=== PATIENT | male | born 1955 | race Caucasian/White ===

== ENCOUNTER → 2018-10-16 11:22 | Outpatient (CLI) | payer OTHER, SELFPAY ==
--- NOTE | 2018-10-16 | DI.RAD.S_ITS ---
PROCEDURE: XR LUMBAR SPINE 2-3V INDICATIONS: MUSCLE STRAIN TECHNIQUE: 3 views of the lumbar spine were acquired. COMPARISON: None. FINDINGS: Bones: No fracture or focal osseous destruction. Dextroscoliosis of the lumbar spine. Endplate sclerosis and spurring. Diffuse facet arthropathy. Mild -to-moderate diffuse lumbar disc space narrowing although limited evaluation given scoliosis. Soft tissues: Overlying bowel gas pattern is normal. No suspicious soft tissue calcifications. Numerous vascular calcifications project of the aorta. IMPRESSION: No definite fracture identified. However, suboptimal study sensitivity due to diffuse degenerative changes and scoliosis. Dictated by: Cody Barker M.D. on 10/16/2018 at 12:47 Approved by: Cody Barker M.D. on 10/16/2018 at 12:53
== END ==
PROVIDERS: PCP Family Medicine; Visit Provider Family Medicine
DX: S39.012A Strain of muscle, fascia and tendon of lower back, initial encounter (principal); M47.816 Spondylosis without myelopathy or radiculopathy, lumbar region; M41.86 Other forms of scoliosis, lumbar region
CPT/HCPCS: 72100

== ENCOUNTER → 2018-12-17 13:55 | Outpatient (CLI) | payer OTHER, SELFPAY | PROVIDERS: PCP Family Medicine; Visit Provider Family Medicine | DX: I87.321 Chronic venous hypertension (idiopathic) with inflammation of right lower extremity (principal); L97.811 Non-pressure chronic ulcer of other part of right lower leg limited to breakdown of skin; L03.115 Cellulitis of right lower limb; E66.01 Morbid (severe) obesity due to excess calories | CPT/HCPCS: 87070; 87075; 87077; 87186; 87205; 97597; 97598; 99203; 99213 ==

== ENCOUNTER → 2018-12-19 13:17 | Outpatient (CLI) | payer OTHER, SELFPAY | PROVIDERS: PCP Family Medicine; Visit Provider Family Medicine | DX: L97.811 Non-pressure chronic ulcer of other part of right lower leg limited to breakdown of skin (principal); L03.115 Cellulitis of right lower limb | CPT/HCPCS: 29581; 93922 ==

== ENCOUNTER → 2018-12-21 15:32 | Outpatient (REF) | payer OTHER, SELFPAY | LOC: LAB 15:32 | PROVIDERS: PCP Family Medicine; Visit Provider Family Medicine | DX: I87.321 Chronic venous hypertension (idiopathic) with inflammation of right lower extremity (principal); L97.811 Non-pressure chronic ulcer of other part of right lower leg limited to breakdown of skin; L03.115 Cellulitis of right lower limb; E66.01 Morbid (severe) obesity due to excess calories | CPT/HCPCS: 87186 ==

== ENCOUNTER → 2018-12-24 10:08 | Outpatient (CLI) | payer OTHER, SELFPAY | PROVIDERS: PCP Family Medicine; Visit Provider Family Medicine | DX: I87.321 Chronic venous hypertension (idiopathic) with inflammation of right lower extremity (principal); L97.812 Non-pressure chronic ulcer of other part of right lower leg with fat layer exposed; L03.115 Cellulitis of right lower limb; B96.5 Pseudomonas (aeruginosa) (mallei) (pseudomallei) as the cause of diseases classified elsewhere | CPT/HCPCS: 87070; 87205; 97597; 97598; 99214 ==

== ENCOUNTER → 2019-01-01 10:51 | Outpatient (CLI) | payer OTHER, SELFPAY | PROVIDERS: PCP Family Medicine; Visit Provider Family Medicine | DX: I87.311 Chronic venous hypertension (idiopathic) with ulcer of right lower extremity (principal); L97.812 Non-pressure chronic ulcer of other part of right lower leg with fat layer exposed; L03.115 Cellulitis of right lower limb | CPT/HCPCS: 97597; 97598 ==

== ENCOUNTER → 2019-01-08 10:15 | Outpatient (CLI) | payer OTHER, SELFPAY | PROVIDERS: PCP Family Medicine; Visit Provider Family Medicine | DX: S81.801A Unspecified open wound, right lower leg, initial encounter (principal); I87.321 Chronic venous hypertension (idiopathic) with inflammation of right lower extremity; E66.01 Morbid (severe) obesity due to excess calories | CPT/HCPCS: 99213 ==

== ENCOUNTER → 2019-01-22 10:10 | Outpatient (CLI) | payer OTHER, SELFPAY | PROVIDERS: PCP Family Medicine; Visit Provider Family Medicine | DX: L03.115 Cellulitis of right lower limb (principal); E66.01 Morbid (severe) obesity due to excess calories | CPT/HCPCS: 99213 ==

== ENCOUNTER → 2019-01-29 12:58 | Outpatient (CLI) | payer OTHER, SELFPAY | PROVIDERS: PCP Family Medicine; Visit Provider Family Medicine | DX: L97.811 Non-pressure chronic ulcer of other part of right lower leg limited to breakdown of skin (principal) | CPT/HCPCS: 99213 ==

== ENCOUNTER → 2019-02-05 10:25 | Outpatient (CLI) | payer OTHER, SELFPAY | PROVIDERS: PCP Family Medicine; Visit Provider Family Medicine | DX: R60.9 Edema, unspecified (principal); E66.01 Morbid (severe) obesity due to excess calories | CPT/HCPCS: 99212; 99213 ==

== ENCOUNTER → 2019-03-12 13:15 | Outpatient (CLI) | payer OTHER, SELFPAY ==
--- NOTE | 2019-03-12 | DI.RAD.S_ITS ---
PROCEDURE: XR HIP W PEL IF DONE BILAT 2V INDICATIONS: BILAT HIP INJURY TECHNIQUE: AP pelvis with lateral view(s) of the left and right hip(s). COMPARISON: None. FINDINGS: Bones: No fractures or dislocations. Pelvic ring appears intact. No suspicious bony lesions. Moderate bilateral hip degeneration. Lower lumbar spondylosis, with lateral curvature Soft tissues: The visualized bowel gas pattern is normal. No suspicious soft tissue calcifications. IMPRESSION: Moderate bilateral hip degeneration. If the patient's pain or other symptoms persist, consider further evaluation with MRI Dictated by: Cody Barker M.D. on 03/12/2019 at 14:02 Approved by: Cody Barker M.D. on 03/12/2019 at 14:36
== END ==
PROVIDERS: PCP Family Medicine; Visit Provider Family Medicine
DX: S79.912A Unspecified injury of left hip, initial encounter (principal); S79.911A Unspecified injury of right hip, initial encounter; M16.0 Bilateral primary osteoarthritis of hip; M47.816 Spondylosis without myelopathy or radiculopathy, lumbar region; X58.XXXA Exposure to other specified factors, initial encounter
CPT/HCPCS: 73521

== ENCOUNTER 2020-07-22 02:50 | Observation (INO) | payer OTHER, SELFPAY ==
[2020-07-22] VITALS (25 sets, daily range): BP systolic 91–139; BP diastolic 53–73; PULSE 91–137; RESP 18–36; TEMP 36.2–37.8; O2SAT 97–100; BMI 33.5
--- NOTE | 2020-07-22 03:00 | DI.US.S_ITS ---
PROCEDURE: US PERIPH VENOUS LOW EXTREM BI INDICATIONS: Pain and edema, both legs TECHNIQUE: Real-time imaging, as well as color and pulse Doppler interrogation, were performed of the deep veins of both legs from the inguinal ligament to the popliteal fossa. COMPARISON: None. FINDINGS: Right: The common femoral, femoral and popliteal veins are normally compressible, and free of intraluminal thrombus. Color and pulse Doppler demonstrate normal phasic intravascular flow. There is normal augmentation response to distal compression maneuver. Left: The common femoral, femoral and popliteal veins are normally compressible, and free of intraluminal thrombus. Color and pulse Doppler demonstrate normal phasic intravascular flow. There is normal augmentation response to distal compression maneuver. IMPRESSION: No evidence of deep vein thrombosis involving either the right or left lower extremities. Dictated by: Selin Arriaga MD, PhD on 07/22/2020 at 8:04 Approved by: Selin Arriaga MD, PhD on 07/22/2020 at 8:19
--- NOTE | 2020-07-22 03:04 | ED_ITS ---
HPI - Fall General Chief Complaint: Fall Stated Complaint: Fall Time Seen by Provider: 07/22/20 03:00 Source: patient and EMS Mode of arrival: EMS Limitations: no limitations History of Present Illness HPI Narrative: The patient was transitioned to a chair earlier this evening, he fell to the floor. He landed on his knees. He fell 2 years ago while at work, injuring his lower back. From that injury he has had persistent numbness to his lower extremities. He has been ambulatory without motor weakness to the lower extremities. He was trapped in knee-chest position position for about 3 hours. He eventually contact is neighbor, his neighbor could not help him and contacted EMS. He has bandages on both lower extremities, he is tending to chronic skin lesions that were [facility]. He has dyspnea on panting upon arrival. He does not complain of chest pain. He denies h emoptysis. He denies recent illness. He denies fever or chills. He has abrasions to both knees and lower extremities. He is ulcers/skin lesions wraps to both lower extremities. He currently complains of numbness in both feet, as noted above. Since been trapped in the position as described, he cannot move his ankles or feet. He does not have diabetes. He refers to the axilla as the reason for his neuropathy. His approximately 2 years ago, he lives alone. Related Data Home Medications Medication Instructions Recorded Confirmed hydrochlorothiazide 25 mg tablet 25 mg PO DAILY 06/02/18 06/02/18 lisinopril 40 mg tablet 40 mg PO DAILY 06/02/18 06/02/18 niacin 500 mg tablet 500 mg PO DAILY 06/02/18 06/02/18 omega-3 fatty acids 500 mg capsule 500 mg PO DAILY 06/02/18 06/02/18 simvastatin PO 06/02/18 06/02/18 Review of Systems Constitutional Constitutional: Denies body ache(s), Denies chills, Denies fever(s), Denies headache(s) and Denies night sweats Eyes Eyes: Denies change in vision and Denies loss of vision ENT Ears, Nose, Mouth, and Throat: Denies vertigo, Denies dizziness, Denies headache(s) and Denies sore throat Cardiovascular Cardiovascular: Denies chest pain, Denies irregular heart rhythm, Denies lightheadedness, Denies dyspnea and Denies orthopnea Respiratory Respiratory: Denies cough, Denies dyspnea and Denies wheezing Gastrointestinal Gastrointestinal: Denies abdominal pain, Denies diarrhea, Denies nausea and De nies vomiting Genitourinary Genitourinary: Denies dysuria Genitourinary: Denies dysuria Musculoskeletal Comments: See HPI regarding lower extremities. Integumentary/Breasts Comments: Open sores on both lower extremities. Multiple bruises in from the fall. Neurologic Neurologic: Denies vertigo, Denies dizziness, Denies headache(s) and Denies loss of vision Comments: Bilateral lower extremity numbness. Allergic/Immunologic Allergic/Immunologic: Denies wheezing Patient History Medical History (Updated 07/22/20 @ 05:58 by Wilmar Guzman MD) Hypertension (Acute) Surgical History (Updated 07/22/20 @ 05:38 by Wilmar Guzman MD) No significant past surgical history (Acute) Social History Smoking Status: Former smoker Smoking Status: Former smoker Exam Initial Vital Signs Initial Vital Signs: Vital Signs Temperature 100.1 F H 07/22/20 03:00 Pulse Rate 136 H 07/22/20 03:00 Respiratory Rate 36 H 07/22/20 03:00 Blood Pressure 91/58 L 07/22/20 03:00 Pulse Oximetry 100 07/22/20 03:00 Const General: cooperative and well developed Nutritional Appearance: well nourished [facility] Head: normocephalic and atraumatic Eyes General: appearance normal, both eyes and all related structures Eyelids: eyelids normal Conjunctivae: conjunctivae normal Sclera: sclerae normal Pupils: PERRL EOM: EOM intact bilaterally Neck Neck: No lymphadenopathy Chest Chest: normal inspection of the chest Resp Effort & Inspection: normal respiratory effort, able to speak in complete sentences, no respiratory distress and no use of accessory muscles Auscultation: clear to auscultation bilaterally Cardio Rate: regular rate and tachycardic Rhythm: regular rhythm Heart Sounds: no click, no gallops, no murmurs and no rubs Pulses: normal peripheral pulses GI Inspection: non-distended Palpation: soft, no hepatosplenomegaly, No guarding, No pulsatile mass and No tender Auscultation: normal bowel sounds Back/Spine/Pelvis Back: normal to inspection and No back tenderness (No visible injury) Skin General: no rashes or lesions noted, No jaundice and No petechiae Other: Erythema with warmth to both lower extremities. Skin breakdown low-dose notable on the right. Slimy, purulent drainage from the right leg. No evidence of abscess. Contusions and abrasions of the knees, shins, and dorsal feet. Normal capillary refill to both lower extremities. Neuro Other: He can flex and extend at the hips, decreased flexion is tension at the knees. No flexion extension at the ankles. He has a traumatic neuropathy. Course Course Course Narrative: The patient had tachypnea and tachycardia upon arrival. Is initial blood pressure was 90s. He was afebrile. Exam was concerning for sepsis, he was quickly started on IV fluid boluses, as well as Zosyn. I wound culture was obtained from the right leg. Chest x-ray shows no infiltrate. EKG shows tachycardia, no acute ST elevation. There are multiple abnormalities on the labs, he has renal failure, diabetes, acidosis, and hyperkalemia. His LFTs are elevated. The troponin and CK are elevated. He has significant elevated D- dimer. Ultrasound of lower extremities was normal, no DVT. A CTA of the chest was not obtainable due to his poor renal function. Lovenox was given due to the elevated D-dimer in conjunction with tachypnea as well as the elevated troponin. His received 3 L of IV fluids to date. Zosyn has been given. He received morphine due to lower extremity pain. The tachycardia is improved, his blood pressure is now 108 systolic. He clearly feels better. Despite aggressive IV hydration, I urine sample has not been obtained. He appears to have rh abdomyolysis. I have discussed the patient's care with the on-call physician, Dr. Headley. IV fluids will be continued. His labs will be repeated. He will be admitted to the ICU. Orders Ordered: ED Orders 07/22/20 03:00 US periph venous low extrem bi Stat 07/22/20 03:03 EKG-12 Lead Stat 07/22/20 03:10 COVID19 -ED/INPAT/OR/L&D Stat 07/22/20 03:14 XR chest 1V Stat 07/22/20 03:15 Wound Culture and Gram Stain Stat 07/22/20 03:20 Blood Culture Stat Complete Blood Count AUTO DIFF Stat Comprehensive Metabolic Panel Stat D Dimer Stat Lactate (Lactic Acid) Stat NT-proBNP (BNP-Adult 18+) Stat Troponin & CK Cardiac Panel Stat 07/22/20 05:18 Arterial Blood Gas Stat Sodium Chloride (Normal Saline 0.9%) 1,000 mls @ 250 mls/hr IV CONT CHECO Last Infusion: 07/22/20 06:23 Dose: 0 mls/hr Documented by: Infusion: 07/22/20 05:42 Dose: 0 mls/hr Documented by: Admin: 07/22/20 03:51 Dose: 250 mls/hr Documented by: ZORAN Sodium Chloride (Normal Saline 0.9%) 1,000 mls @ 1,000 mls/hr IV BOLUS PRN PRN Reason: Fluid replacement Last Admin: 07/22/20 06:50 Dose: 1,000 mls/hr Documented by: ZORAN Discontinued Medications Enoxaparin Sodium (Lovenox) 130 mg 1 mg/kg (130 mg) SUBCUT NOW ONE Stop: 07/22/20 05:03 Last Admin: 07/22/20 05:11 Dose: 130 mg Documented by: ASHIA Piperacillin/Tazobactam/Dextrose (Zosyn) 4.5 gm in 100 mls @ 200 mls/hr IV NOW ONE Stop: 07/22/20 03:43 Last Infusion: 07/22/20 04:34 Dose: 0 mls/hr Documented by: Admin: 07/22/20 03:52 Dose: 200 mls/hr Documented by: ZORAN Sodium Chloride (Normal Saline 0.9%) 1,000 mls @ 1,000 mls/hr IV BOLUS ONE Stop: 07/22/20 06:04 Last Infusion: 07/22/20 06:24 Dose: 0 mls/hr Documented by: Admin: 07/22/20 05:11 Dose: 1,000 mls/hr Documented by: ASHIA Morphine Sulfate (Morphine) 4 mg IV NOW ONE Stop: 07/22/20 03:01 Last Admin: 07/22/20 04:06 Dose: 4 mg Documented by: ZORAN Morphine Sulfate (Morphine) 4 mg IV NOW ONE Stop: 07/22/20 05:07 Last Admin: 07/22/20 05:11 Dose: 4 mg Documented by: AUPDIKE Vital Signs Vital signs: Vital Signs - 8 hr 07/22/20 03:00 07/22/20 03:02 07/22/20 03:03 Temperature 100.1 F H Pulse Rate 136 H 137 H 137 H Respiratory Rate 36 H Blood Pressure 91/58 L 91/58 L Pulse Oximetry 100 100 100 07/22/20 03:30 07/22/20 03:33 07/22/20 03:50 Temperature Pulse Rate 134 H 132 H 132 H Respiratory Rate 30 H 27 H 30 H Blood Pressure 108/53 L 111/55 L Pulse Oximetry 99 100 99 07/22/20 04:00 07/22/20 04:30 07/22/20 05:00 Temperature Pulse Rate 133 H 124 H 121 H Respiratory Rate 29 H 32 H 29 H Blood Pressure 113/57 L 106/55 L 105/59 L Pulse Oximetry 100 99 98 MDM - Fall Lab Data Result diagrams: 07/22/20 06:20 07/22/20 06:20 Labs: Lab Results 07/22/20 07/22/20 07/22/20 Range/Units 03:10 03:20 03:20 WBC 24.9 H (4.5-11.0) X10^3/uL RBC 3.57 L (4.5-5.9) X10^6/uL Hgb 10.7 L (13.5-17.5) g/dL Hct 32.8 L (41-53) % MCV 91.9 (80-100) fL MCH 30.0 (26-34) PG MCHC 32.7 (30-36) % RDW 16.7 H (11.6-14.8) % Plt Count 276 (150-400) X10^3/uL Neut % (Auto) 92.5 H (50-75) % Lymph % (Auto) 2.6 L (25-40) % Payette % (Auto) 4.5 (3-14) % Eos % (Auto) 0.0 L (2-4) % Baso % (Auto) 0.4 (0-2) % Neut # (Auto) 78942 H (6086-8178) /uL Lymph # (Auto) 700 L (0717-5150) /uL Payette # (Auto) 1100 H (0-900) /uL Eos # (Auto) 0 (0-450) /uL Baso # (Auto) 100 (0-100) /uL PT (10.1-12.7) SECONDS INR (0.9-1.3) D-Dimer > 5250 H (<230) ng/mL ABG pH (7.35-7.45) ABG pCO2 (35-45) mmHg ABG pO2 (80-100) mmHg ABG HCO3 (22-26) mmol/L ABG Total CO2 (21-31) mmol/L ABG O2 Saturation (95-100) % ABG Base Excess (-2-2) mmol/L FiO2 Sodium (137-145) mmol/L Potassium (3.4-5.1) mmol/L Chloride (98-107) mmol/L Carbon Dioxide (22-32) mmol/L BUN (9-20) mg/dL Creatinine (0.66-1.25) mg/dL Estimated GFR (>60) mL/min BUN/Creatinine Ratio (6-22) Glucose (80-110) mg/dL Lactate (0.7-2.1) mmol/L Calcium (8.4-10.2) mg/dL Total Bilirubin (0.2-1.3) mg/dL AST (17-59) IU/L ALT (<50) IU/L Alkaline Phosphatase (38-126) U/L Total Creatine Kinase (55-170) U/L CK-MB (CK-2) (<2.37) ng/mL CK-MB (CK-2) Rel Index (1.5-5.0) % Troponin I (0.01-0.034) ng/mL NT-Pro-B Natriuret Pep (<125) pg/mL Total Protein (6.3-8.2) g/dL Albumin (3.5-5.0) g/dL Globulin (1.7-4.1) g/dL Albumin/Globulin Ratio (1.0-2.8) COVID-19 PCR Negative (Negative) 07/22/20 07/22/20 07/22/20 Range/Units 03:20 03:20 03:20 WBC (4.5-11.0) X10^3/uL RBC (4.5-5.9) X10^6/uL Hgb (13.5-17.5) g/dL Hct (41-53) % MCV (80-100) fL MCH (26-34) PG MCHC (30-36) % RDW (11.6-14.8) % Plt Count (150-400) X10^3/uL Neut % (Auto) (50-75) % Lymph % (Auto) (25-40) % Payette % (Auto) (3-14) % Eos % (Auto) (2-4) % Baso % (Auto) (0-2) % Neut # (Auto) (8127-6909) /uL Lymph # (Auto) (9596-2675) /uL Payette # (Auto) (0-900) /uL Eos # (Auto) (0-450) /uL Baso # (Auto) (0-100) /uL PT (10.1-12.7) SECONDS INR (0.9-1.3) D-Dimer (<230) ng/mL ABG pH (7.35-7.45) ABG pCO2 (35-45) mmHg ABG pO2 (80-100) mmHg ABG HCO3 (22-26) mmol/L ABG Total CO2 (21-31) mmol/L ABG O2 Saturation (95-100) % ABG Base Excess (-2-2) mmol/L FiO2 Sodium 137 (137-145) mmol/L Potassium 6.5 H* (3.4-5.1) mmol/L Chloride 109 H (98-107) mmol/L Carbon Dioxide 5 L* (22-32) mmol/L BUN 41 H (9-20) mg/dL Creatinine 2.42 H (0.66-1.25) mg/dL Estimated GFR 27.1 L (>60) mL/min BUN/Creatinine Ratio 16.9 (6-22) Glucose 271 H (80-110) mg/dL Lactate 10.3 H* (0.7-2.1) mmol/L Calcium 8.8 (8.4-10.2) mg/dL Total Bilirubin 0.8 (0.2-1.3) mg/dL AST 589 H (17-59) IU/L ALT 120 H (<50) IU/L Alkaline Phosphatase 145 H (38-126) U/L Total Creatine Kinase 19528 H (55-170) U/L CK-MB (CK-2) 109.00 H (<2.37) ng/mL CK-MB (CK-2) Rel Index 0.2 L (1.5-5.0) % Troponin I 0.352 H* (0.01-0.034) ng/mL NT-Pro-B Natriuret Pep 7490 H (<125) pg/mL Total Protein 8.9 H (6.3-8.2) g/dL Albumin 4.2 (3.5-5.0) g/dL Globulin 4.7 H (1.7-4.1) g/dL Albumin/Globulin Ratio 0.9 L (1.0-2.8) COVID-19 PCR (Negative) 07/22/20 07/22/20 Range/Units 03:20 05:18 WBC (4.5-11.0) X10^3/uL RBC (4.5-5.9) X10^6/uL Hgb (13.5-17.5) g/dL Hct (41-53) % MCV (80-100) fL MCH (26-34) PG MCHC (30-36) % RDW (11.6-14.8) % Plt Count (150-400) X10^3/uL Neut % (Auto) (50-75) % Lymph % (Auto) (25-40) % Payette % (Auto) (3-14) % Eos % (Auto) (2-4) % Baso % (Auto) (0-2) % Neut # (Auto) (2911-3870) /uL Lymph # (Auto) (7453-7222) /uL Payette # (Auto) (0-900) /uL Eos # (Auto) (0-450) /uL Baso # (Auto) (0-100) /uL PT 14.5 H (10.1-12.7) SECONDS INR 1.3 (0.9-1.3) D-Dimer (<230) ng/mL ABG pH 7.35 (7.35-7.45) ABG pCO2 17.0 L* (35-45) mmHg ABG pO2 114 H (80-100) mmHg ABG HCO3 9 L (22-26) mmol/L ABG Total CO2 10 L (21-31) mmol/L ABG O2 Saturation 98 (95-100) % ABG Base Excess -16.0 L (-2-2) mmol/L FiO2 21 Sodium (137-145) mmol/L Potassium (3.4-5.1) mmol/L Chloride (98-107) mmol/L Carbon Dioxide (22-32) mmol/L BUN (9-20) mg/dL Creatinine (0.66-1.25) mg/dL Estimated GFR (>60) mL/min BUN/Creatinine Ratio (6-22) Glucose (80-110) mg/dL Lactate (0.7-2.1) mmol/L Calcium (8.4-10.2) mg/dL Total Bilirubin (0.2-1.3) mg/dL AST (17-59) IU/L ALT (<50) IU/L Alkaline Phosphatase (38-126) U/L Total Creatine Kinase (55-170) U/L CK-MB (CK-2) (<2.37) ng/mL CK-MB (CK-2) Rel Index (1.5-5.0) % Troponin I (0.01-0.034) ng/mL NT-Pro-B Natriuret Pep (<125) pg/mL Total Protein (6.3-8.2) g/dL Albumin (3.5-5.0) g/dL Globulin (1.7-4.1) g/dL Albumin/Globulin Ratio (1.0-2.8) COVID-19 PCR (Negative) Point of Care Testing Glucose POC 256 Imaging Data Chest x-ray: Radiologist's Impression: No acute findings Bilateral lower extremity Doppler:: Radiologist's Impression: No evidence of DVT. ECG Data Attestation: I personally reviewed and interpreted this ECG as follows: (Sinus tachycardia rate 136 beats per minute. RBBB. LAFB. No ectopy. No acute ST T wave changes.) Critical Care Time Critical Care Time Critical Care Time: Yes Total Critical Care Time: 60 Attestation: Critical care include the patient's initial evaluation, review of EKG, radiology and lab data. Multiple critical decisions have been made. The situation was discussed with the patient. Of consult with the attending physician. Discharge Plan Departure Patient Disposition: Released, Other Clinical Impression: Bilateral lower leg cellulitis, Compression neuropathy, Acute hyperkalemia, Acute renal failure, Diabetes, Rhabdomyolysis, Elevated LFTs Sepsis Qualifiers: Sepsis type: sepsis due to unspecified organism Sepsis acute organ dysfunction status: with acute organ dysfunction Severe sepsis acute organ dysfunction type: acute renal failure Acute renal failure type: unspecified Severe sepsis shock status: without septic shock Qualified Code(s): A41.9 - Sepsis, unspecified organism Discharge Date/Time: 07/22/20 07:46 Admit Date/Time: 07/22/20 05:29 Admit Provider: Kisha Headley
--- NOTE | 2020-07-22 03:14 | DI.RAD.S_ITS ---
PROCEDURE: XR CHEST 1V INDICATIONS: dyspnea TECHNIQUE: One view of the chest was acquired. COMPARISON: None. FINDINGS: Surgical changes and devices: None. Lungs and pleura: Lungs are clear. No pleural effusions or pneumothorax. Mediastinum: Mediastinal contours appear normal. Heart is enlarged Bones and chest wall: No suspicious bony lesions. Overlying soft tissues appear unremarkable. IMPRESSION: No acute cardiopulmonary disease process. Dictated by: Selin Arriaga MD, PhD on 07/22/2020 at 8:29 Approved by: Selin Arriaga MD, PhD on 07/22/2020 at 8:30
[2020-07-22 03:45] LABS: Add Manual Diff / Slide Review NO; Basophils Absolute Auto 100 /uL (0-100); Basophils Percent Auto 0.4 % (0-2); Eosinophils Absolute Auto 0 /uL (0-450); Hematocrit 32.8 % (41-53); Hemoglobin 10.7 g/dL (13.5-17.5); Lymphocytes Absolute Auto 700 /uL (1100-4500); Lymphocytes Percent Auto 2.6 % (25-40); Mean Corpuscular HGB Conc 32.7 % (30-36); Mean Corpuscular Volume 91.9 fL (80-100); Monocytes Absolute Auto 1100 /uL (0-900); Monocytes Percent Auto 4.5 % (3-14); Neutrophils Absolute Auto 23000 /uL (1500-7000); Neutrophils Percent Auto 92.5 % (50-75); Platelet Count 276 X10^3/uL (150-400); Red Blood Cell Count 3.57 X10^6/uL (4.5-5.9); Red Cell Distribution Width 16.7 % (11.6-14.8); White Blood Cell Count 24.9 X10^3/uL (4.5-11.0)
[2020-07-22] MEDS: SODIUM CHLORIDE 0.9% 1,000 ML 250 ML IV ×4 (03:51→13:40)
[2020-07-22] MEDS: PIPERACILLIN-TAZO 4.5 GM/100 ML FROZ.PIGGY IV (03:52)
[2020-07-22 03:53] LABS: Albumin 4.2 g/dL (3.5-5.0); Albumin Globulin Ratio 0.9 (1.0-2.8); Alkaline Phosphatase 145 U/L (38-126); Aspartate Aminotransferase 589 IU/L (17-59); Bilirubin Total 0.8 mg/dL (0.2-1.3); Blood Urea Nitrogen 41 mg/dL (9-20); Calcium 8.8 mg/dL (8.4-10.2); Chloride 109 mmol/L (98-107); Globulin 4.7 g/dL (1.7-4.1); Glucose 271 mg/dL (80-110); Sodium 137 mmol/L (137-145); Total Protein 8.9 g/dL (6.3-8.2)
[2020-07-22 03:55] LABS: COVID19 -Nasal RAPID Negative (Negative)
[2020-07-22 04:01] LABS: D Dimer > 5250 ng/mL (<230)
[2020-07-22] MEDS: MORPHINE 4 MG/ML INJ IV ×2 (04:06→05:11)
[2020-07-22 04:07] LABS: Alanine Aminotransferase 120 IU/L (<50)
[2020-07-22 04:08] LABS: BUN Creatinine Ratio 16.9 (6-22); Estimated Glomerular Filt Rate 27.1 mL/min (>60)
[2020-07-22 04:11] LABS: Carbon Dioxide 5 mmol/L (22-32); Potassium 6.5 mmol/L (3.4-5.1)
[2020-07-22 04:13] LABS: Lactate (Lactic Acid) 10.3 mmol/L (0.7-2.1)
--- NOTE | 2020-07-22 04:22 | PC.NURSE ---
Pt reports he fell out of a chair and spent 5 hours on his knees before calling for help. Pt presented with wet sweat pants and lower legs wrapped in wet bandages, reporting severe pain to legs and inability to move feet/toes. Dorsalis pedis pulses present +1, cap refill to feet <2 sec, although feet appear dusky, left>right. Lower leg skin breakdown weeping serious fluid. Legs supported on chux-lined pillows with heels floated. Quarter-sized Stage II pressure wounds noted to bilat knees, and smaller open areas notes to tops of feet.
[2020-07-22 04:24] LABS: HEMOLYSIS 46 (0-50)
[2020-07-22 04:26] LABS: Creatine Kinase 68861 U/L (55-170)
[2020-07-22 04:27] LABS: Troponin I 0.352 ng/mL (0.01-0.034)
[2020-07-22 04:33] LABS: CKMB % Relative Index 0.2 % (1.5-5.0)
[2020-07-22] MEDS: ENOXAPARIN 80 MG/0.8 ML SYRINGE 130 MG SUBCUT (05:11)
[2020-07-22] MEDS: SODIUM CHLORIDE 0.9% 1,000 ML 1000 ML IV ×2 (05:11→06:50)
[2020-07-22 05:22] LABS: pH ABG 7.35 (7.35-7.45)
[2020-07-22 05:23] LABS: Fractionated Inspired Oxygen 21; HCO3 ABG 9 mmol/L (22-26); Oxygen Saturation ABG 98 % (95-100); PO2 ABG 114 mmHg (80-100); TCO2 ABG 10 mmol/L (21-31)
[2020-07-22 05:30] LABS: NT-proBNP (BNP-Adult 18+) 7490 pg/mL (<125)
[2020-07-22 05:36] LABS: Reflexed Lactate in 2 Hours Y
--- NOTE | 2020-07-22 06:24 | PC.NURSE ---
Repeat labs drawn from R arm PIV and sent to lab
[2020-07-22 06:31] LABS: INR 1.3 (0.9-1.3); Prothrombin Time 14.5 SECONDS (10.1-12.7)
[2020-07-22 06:40] LABS: Add Manual Diff / Slide Review NO; Basophils Absolute Auto 0 /uL (0-100); Basophils Percent Auto 0.2 % (0-2); Eosinophils Absolute Auto 0 /uL (0-450); Hematocrit 29.6 % (41-53); Hemoglobin 9.9 g/dL (13.5-17.5); Lymphocytes Absolute Auto 400 /uL (1100-4500); Lymphocytes Percent Auto 2.2 % (25-40); Mean Corpuscular HGB Conc 33.4 % (30-36); Mean Corpuscular Hemoglobin 30.1 PG (26-34); Mean Corpuscular Volume 90.4 fL (80-100); Monocytes Absolute Auto 1200 /uL (0-900); Monocytes Percent Auto 7.5 % (3-14); Neutrophils Absolute Auto 14800 /uL (1500-7000); Neutrophils Percent Auto 90.1 % (50-75); Platelet Count 205 X10^3/uL (150-400); Red Blood Cell Count 3.28 X10^6/uL (4.5-5.9); Red Cell Distribution Width 16.9 % (11.6-14.8); White Blood Cell Count 16.4 X10^3/uL (4.5-11.0)
[2020-07-22 06:44] LABS: Lactate (Lactic Acid) 2.7 mmol/L (0.7-2.1)
[2020-07-22 06:45] LABS: Alanine Aminotransferase 215 IU/L (<50); Albumin 3.5 g/dL (3.5-5.0); Albumin Globulin Ratio 0.9 (1.0-2.8); Alkaline Phosphatase 107 U/L (38-126); Bilirubin Total 0.7 mg/dL (0.2-1.3); Blood Urea Nitrogen 45 mg/dL (9-20); Carbon Dioxide 11 mmol/L (22-32); Chloride 111 mmol/L (98-107); Globulin 3.9 g/dL (1.7-4.1); Glucose 243 mg/dL (80-110); Sodium 135 mmol/L (137-145); Total Protein 7.4 g/dL (6.3-8.2)
[2020-07-22 06:50] LABS: Appearance Urine UA CLEAR; Bilirubin Urine UA NEGATIVE (NEGATIVE); Glucose Urine UA NEGATIVE (Negative); Ketones Urine UA NEGATIVE (NEGATIVE); Leukocyte Esterase Urine UA NEGATIVE (NEGATIVE); Nitrite Urine UA NEGATIVE (Negative); Occult Blood Urine UA 3+ (Negative); Protein Urine UA 3+ (Negative); Urobilinogen Urine UA 0.2 E.U./dL (0.2); WBC Urine None Seen (0-5/HPF)
[2020-07-22 06:51] LABS: Color Urine UA Dark Yellow
[2020-07-22 06:54] LABS: NT-proBNP (BNP-Adult 18+) 8060 pg/mL (<125)
[2020-07-22 06:55] LABS: RBC Urine 1-5/HPF (0-5/HPF); Squamous Epithelial Cell Urine 0-1 /HPF (0-5/HPF)
[2020-07-22 06:56] LABS: Amorphous Sediment Urine 3+; Bacteria Urine Few (2-10); Culture Indicated Urine Cult Not Indicated
[2020-07-22 06:59] LABS: BUN Creatinine Ratio 20.4 (6-22); Estimated Glomerular Filt Rate 30.1 mL/min (>60); HEMOLYSIS 41 (0-50)
[2020-07-22 07:14] LABS: Aspartate Aminotransferase 1193 IU/L (17-59)
[2020-07-22 07:54] LABS: Troponin I 0.479 ng/mL (0.01-0.034)
[2020-07-22 08:24] LABS: Reflexed Lactate in 2 Hours Y
[2020-07-22 08:47] LABS: Creatine Kinase 127505 U/L (55-170)
[2020-07-22 08:49] LABS: CKMB % Relative Index 0.2 % (1.5-5.0)
[2020-07-22 08:58] LABS: Lactate 2HR (Lactic Acid Rflx) 2.1 mmol/L (0.7-2.1)
[2020-07-22] MEDS: levoFLOXacin 750 MG/150 ML PIGGYBACK 100 MG IV (10:28)
[2020-07-22 10:31] LABS: Procalcitonin 14.53 ng/mL (<0.5)
[2020-07-22] MEDS: HYDROCODONE/ACET 5/325 TABLET 1 TAB PO ×2 (13:08→16:57)
[2020-07-22] MEDS: INSULIN ASPART 100 UNIT/ML INSULN PEN SUBCUT ×2 (13:09→16:59)
[2020-07-22 13:34] LABS: Blood Urea Nitrogen 50 mg/dL (9-20); Carbon Dioxide 12 mmol/L (22-32); Chloride 112 mmol/L (98-107); Glucose 189 mg/dL (80-110); HEMOLYSIS 38 (0-50); Magnesium 2.6 mg/dL (1.6-2.3); Sodium 136 mmol/L (137-145)
[2020-07-22 13:42] LABS: BUN Creatinine Ratio 16.7 (6-22); Estimated Glomerular Filt Rate 21.2 mL/min (>60)
[2020-07-22 13:47] LABS: Calcium 6.3 mg/dL (8.4-10.2)
[2020-07-22 14:06] LABS: Creatine Kinase > 160000 U/L (55-170)
[2020-07-22 14:33] LABS: pH ABG 7.33 (7.35-7.45)
[2020-07-22 14:34] LABS: Fractionated Inspired Oxygen 21; HCO3 ABG 10 mmol/L (22-26); Oxygen Saturation ABG 97 % (95-100); PCO2 ABG 18.7 mmHg (35-45); PO2 ABG 99 mmHg (80-100); TCO2 ABG 11 mmol/L (21-31)
[2020-07-22] MEDS: SODIUM BICARB 8.4% VIAL 150 MEQ in DEXTROSE 5% WATER 1,000 ML IV (14:48)
[2020-07-22 15:15] LABS: Phosphorous 9.5 mg/dL (2.3-3.7)
--- NOTE | 2020-07-22 15:38 | PM.HP.1 ---
History of Present Illness History of Present Illness Date Patient Seen: 07/22/20 Time Patient Seen: 08:02 Date of Onset of Symptoms: 07/19/20 Chief complaint: Fall Narrative: This 65-year-old male who is usually followed by primary care physician Dr. Torres reports to emergency department via ambulance after he contacted his neighbor that he was unable to move. Patient was evaluated in the emergency department and upon arrival was tachypneic and tachycardic. He was afebrile but subsequently developed a fever of 101. He was found to have lower extremity chronic wounds with evidence of acute cellulitis and found to have acute rhabdomyolysis with acute kidney failure. He was admitted for the above. He was not hypoxic. He had a normal chest x-ray. He had a positive D-dimer but it was thought to be related to the rhabdomyolysis and the sepsis syndrome. He had bilateral lower extremity venous Dopplers which were negative for clot. He had a normal chest x-ray. He did not have a CT scan of his chest because of the acute kidney failure and inability to use contrast. It was not felt that this would give added information. He was treated with Lovenox 130 mg which would be a therapeutic dose. He had hyperkalemia with a potassium of 6.5 in in on admission to the ER which quickly improved to 6.0 with 2 L of IV fluids. His acute kidney injury creatinine went from 2.4-2.2 with fluid resuscitation. He was given Zosyn in the emergency department. He admitted for further treatment and evaluation. Patient was in his usual chronically ill state. 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 He slipped and fell back on his back and since then has had decreased sensation in his anterior lower extremities bilaterally. He was and unable to work any further and developed chronic wounds and was placed on disability for this. He was seeing wound care I think a last seen about a year ago but he did not feel that it was helpful and did not like going to wound care and so he has been bandaging his legs himself. He last saw his physician a year ago. He states that he was doing fine and able to walk his dog and perform all activities of daily living until approximately 3 days ago when he developed chills and rigors. He then progressively worsened. He last ate breakfast yesterday. He has been drinking water but nothing else. He last took his medications which include simvastatin, lisinopril, hydrochlorothiazide and metoprolol yesterday morning. He then discovered in the middle the night that he was unable to move from his chair he was unable to move his legs which was new for him. This went on for approximately 3 hours and then he contacted his neighbor who contacted the paramedics and he was brought to the ER for evaluation. Past medical history: Assessment 1. Impaired glucose tolerance Assessment 2. Hyperlipidemia Assessment 3. Hypertension Assessment 4. Peripheral edema Assessment 5. He has atrophy of bilateral lateral Assessment 6. Chronic lower extremity wounds Assessment 7. Chronic low back pain Assessment 8. Peripheral neuropathy Assessment 9. Degenerative disc disease Assessment 10. Obesity Assessment 11. Obesity Medications: 1. Metoprolol ER 25 mg daily 2. Methocarbamol 500 mg 1-2 4 times a day as needed as needed 3. Hydrochlorothiazide 25 mg daily 4. Lisinopril 40 mg daily 5. Simvastatin 40 mg daily 6. 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 Patient had chills and rigors further last 3 days Patient denies rash Patient denies difficulty breathing Patient denies cough or dyspnea on exertion or PND Patient denies chest pain Patient denies palpitations, presyncope, syncope Patient is having leg Patient has chronic back pain Patient History Medical History (Updated 07/22/20 @ 14:40 by Shasta Garcia RN) Anemia (Acute) Cellulitis (Acute) Hyperlipidemia (Acute) Hypertension (Acute) Injury of hip, right (Acute) Injury of left hip (Acute) Neuropathy (Acute) Obesity (Acute) Sprain of ligaments of lumbar spine (Acute) Strabismus (Acute) Surgical History (Updated 07/22/20 @ 05:38 by Wilmar Guzman MD) No significant past surgical history (Acute) Family & Social History Social History: household members none Prior Living Arrangements House Safety & Behavioral: Feels Safe in Current Yes Environment Been Physically Hurt or No Threatened By a Person Suicidal Ideation Description None Suicide Plan Description No Plan Tobacco & Substance use: Smoking Status Former smoker Smoking packs per day 1.5 alcohol intake current alcohol intake frequency a few times a week Substance Use Type does not use Meds Home Medications and Allergies Home Medications Medication Instructions Recorded Confirmed Type hydrochlorothiazide 25 mg tablet 25 mg PO DAILY 06/02/18 07/22/20 History lisinopril 40 mg tablet 40 mg PO DAILY 06/02/18 07/22/20 History niacin 500 mg tablet 500 mg PO DAILY 06/02/18 07/22/20 History omega-3 fatty acids 500 mg capsule 500 mg PO DAILY 06/02/18 07/22/20 History simvastatin 40 mg PO DAILY 06/02/18 07/22/20 History aspirin [Aspirin Low Dose] 81 mg PO DAILY 07/22/20 07/22/20 History methocarbamol 500 mg PO Q6HR PRN 07/22/20 07/22/20 History metoprolol succinate 25 mg PO DAILY 07/22/20 07/22/20 History Allergies Allergy/AdvReac Type Severity Reaction Status Date / Time ferrous sulfate Allergy Verified 07/22/20 09:07 Penicillins Allergy Verified 07/22/20 09:07 sulfamethoxazole Allergy Verified 07/22/20 09:07 [From Septra] trimethoprim [From Mayra] Allergy Verified 07/22/20 09:07 Review of Systems Review of Systems ROS: Yes All systems reviewed with the patient and are negative except as otherwise documented Exam Vital Signs (past 8 hours): - 07/22/20 08:58 07/22/20 09:58 07/22/20 10:00 Temperature 97.5 F L 97.6 F 97.8 F Pulse Rate 124 H 110 H 116 H Respiratory Rate 29 H 18 23 Blood Pressure 124/62 123/61 115/57 L Pulse Oximetry 100 99 99 07/22/20 11:00 07/22/20 12:00 07/22/20 13:00 Temperature 98.0 F 97.2 F L 97.3 F L Pulse Rate 110 H 110 H 104 H Respiratory Rate 23 23 23 Blood Pressure 107/56 L 119/73 126/60 Pulse Oximetry 99 99 100 07/22/20 14:00 Temperature 97.8 F Pulse Rate 109 H Respiratory Rate 25 H Blood Pressure 122/60 Pulse Oximetry 99 Oxygen Delivery Method Room Air Oxygen Flow Rate 0 Narrative Exam Narrative: Patient is alert and oriented x3 and a good historian. He is clearly able to give me the history. He he is disheveled but in no apparent distress. Current heart rate is 110 in atrial fibrillation with blood pressure in the 120s over 70s Temperature is unremarkable HEENT and T: Bilateral exotropia; pupils equal round reactive to light. Extraocular muscles intact. Oropharynx shows slightly dry mucous membranes but pink. Foul-smelling breath Neck: Supple without adenopathy or thyromegaly or masses. No bruit or jugular venous Distension Chest: Clear to auscultation without wheezes rhonchi or crackles. Decreased breath sounds Bibasilar Cor: Regular rate and and irregularly irregular rhythm with distant S1-S2 Abdomen: Obese, positive bowel sounds, soft, nontender, nondistended, no hepatosplenomegaly Extremities: Bilateral lower extremities from the knee down with peripheral edema 2+ pitting. Patient has wounds diffusely anterior and posterior. He has erythema associated with these. He has scale. He has some drainage and a culture was performed by the ER. He has ecchymosis in the digits and pulses are trace dorsalis pedis. Capillary refill time is 3 seconds. Skin: As above Neurologic: Alert and oriented x3. Cranial nerves 2-12 are grossly intact. Bilateral upper extremities are neurovascularly intact. Patient chronically has decreased sensation bilateral lower extremities knee to digits. Patient is unable to lift his legs. Musculoskeletal: Patient with no palpable back pain today. Patient with marked tenderness of quadriceps muscles bilaterally. No deformities Objective Labs Result Diagrams: 07/22/20 06:20 07/22/20 13:05 Labs: Laboratory Results - last 24 hr 07/22/20 07/22/20 07/22/20 03:10 03:20 03:20 WBC 24.9 H RBC 3.57 L Hgb 10.7 L Hct 32.8 L MCV 91.9 MCH 30.0 MCHC 32.7 RDW 16.7 H Plt Count 276 Neut % (Auto) 92.5 H Lymph % (Auto) 2.6 L [place] % (Auto) 4.5 Eos % (Auto) 0.0 L Baso % (Auto) 0.4 Neut # (Auto) 45740 H Lymph # (Auto) 700 L [place] # (Auto) 1100 H Eos # (Auto) 0 Baso # (Auto) 100 PT INR D-Dimer > 5250 H ABG pH ABG pCO2 ABG pO2 ABG HCO3 ABG Total CO2 ABG O2 Saturation ABG Base Excess FiO2 Sodium Potassium Chloride Carbon Dioxide BUN Creatinine Estimated GFR BUN/Creatinine Ratio Glucose Lactate Calcium Phosphorus Magnesium Total Bilirubin AST ALT Alkaline Phosphatase Total Creatine Kinase CK-MB (CK-2) CK-MB (CK-2) Rel Index Troponin I NT-Pro-B Natriuret Pep Total Protein Albumin Globulin Albumin/Globulin Ratio Procalcitonin Urine Color Urine Appearance Urine pH Ur Specific [place] Urine Protein Urine Glucose (UA) Urine Ketones Urine Occult Blood Urine Nitrate Urine Bilirubin Urine Urobilinogen Ur Leukocyte Esterase Urine RBC Urine WBC Ur Squamous Epith Cells Amorphous Sediment Urine Bacteria Ur Culture Indicated? Nasal Screen MRSA (PCR) COVID-19 PCR Negative 07/22/20 07/22/20 07/22/20 03:20 03:20 03:20 WBC RBC Hgb Hct MCV MCH MCHC RDW Plt Count Neut % (Auto) Lymph % (Auto) [place] % (Auto) Eos % (Auto) Baso % (Auto) Neut # (Auto) Lymph # (Auto) [place] # (Auto) Eos # (Auto) Baso # (Auto) PT INR D-Dimer ABG pH ABG pCO2 ABG pO2 ABG HCO3 ABG Total CO2 ABG O2 Saturation ABG Base Excess FiO2 Sodium 137 Potassium 6.5 H* Chloride 109 H Carbon Dioxide 5 L* BUN 41 H Creatinine 2.42 H Estimated GFR 27.1 L BUN/Creatinine Ratio 16.9 Glucose 271 H Lactate 10.3 H* Calcium 8.8 Phosphorus Magnesium Total Bilirubin 0.8 AST 589 H ALT 120 H Alkaline Phosphatase 145 H Total Creatine Kinase 75399 H CK-MB (CK-2) 109.00 H CK-MB (CK-2) Rel Index 0.2 L Troponin I 0.352 H* NT-Pro-B Natriuret Pep 7490 H Total Protein 8.9 H Albumin 4.2 Globulin 4.7 H Albumin/Globulin Ratio 0.9 L Procalcitonin Urine Color Urine Appearance Urine pH Ur Specific [place] Urine Protein Urine Glucose (UA) Urine Ketones Urine Occult Blood Urine Nitrate Urine Bilirubin Urine Urobilinogen Ur Leukocyte Esterase Urine RBC Urine WBC Ur Squamous Epith Cells Amorphous Sediment Urine Bacteria Ur Culture Indicated? Nasal Screen MRSA (PCR) COVID-19 PCR 07/22/20 07/22/20 07/22/20 03:20 05:18 06:20 WBC 16.4 H RBC 3.28 L Hgb 9.9 L Hct 29.6 L MCV 90.4 MCH 30.1 MCHC 33.4 RDW 16.9 H Plt Count 205 Neut % (Auto) 90.1 H Lymph % (Auto) 2.2 L [place] % (Auto) 7.5 Eos % (Auto) 0.0 L Baso % (Auto) 0.2 Neut # (Auto) 22829 H Lymph # (Auto) 400 L [place] # (Auto) 1200 H Eos # (Auto) 0 Baso # (Auto) 0 PT 14.5 H INR 1.3 D-Dimer ABG pH 7.35 ABG pCO2 17.0 L* ABG pO2 114 H ABG HCO3 9 L ABG Total CO2 10 L ABG O2 Saturation 98 ABG Base Excess -16.0 L FiO2 21 Sodium Potassium Chloride Carbon Dioxide BUN Creatinine Estimated GFR BUN/Creatinine Ratio Glucose Lactate Calcium Phosphorus Magnesium Total Bilirubin AST ALT Alkaline Phosphatase Total Creatine Kinase CK-MB (CK-2) CK-MB (CK-2) Rel Index Troponin I NT-Pro-B Natriuret Pep Total Protein Albumin Globulin Albumin/Globulin Ratio Procalcitonin Urine Color Urine Appearance Urine pH Ur Specific [place] Urine Protein Urine Glucose (UA) Urine Ketones Urine Occult Blood Urine Nitrate Urine Bilirubin Urine Urobilinogen Ur Leukocyte Esterase Urine RBC Urine WBC Ur Squamous Epith Cells Amorphous Sediment Urine Bacteria Ur Culture Indicated? Nasal Screen MRSA (PCR) COVID-19 PCR 07/22/20 07/22/20 07/22/20 06:20 06:20 06:20 WBC RBC Hgb Hct MCV MCH MCHC RDW Plt Count Neut % (Auto) Lymph % (Auto) [place] % (Auto) Eos % (Auto) Baso % (Auto) Neut # (Auto) Lymph # (Auto) [place] # (Auto) Eos # (Auto) Baso # (Auto) PT INR D-Dimer ABG pH ABG pCO2 ABG pO2 ABG HCO3 ABG Total CO2 ABG O2 Saturation ABG Base Excess FiO2 Sodium 135 L Potassium 6.0 H Chloride 111 H Carbon Dioxide 11 L BUN 45 H Creatinine 2.21 H Estimated GFR 30.1 L BUN/Creatinine Ratio 20.4 Glucose 243 H Lactate 2.7 H Calcium 7.0 L Phosphorus Magnesium Total Bilirubin 0.7 AST 1193 H ALT 215 H Alkaline Phosphatase 107 Total Creatine Kinase 083608 H D CK-MB (CK-2) 298.00 H D CK-MB (CK-2) Rel Index 0.2 L Troponin I 0.479 H* NT-Pro-B Natriuret Pep 8060 H Total Protein 7.4 Albumin 3.5 Globulin 3.9 Albumin/Globulin Ratio 0.9 L Procalcitonin Urine Color Urine Appearance Urine pH Ur Specific [place] Urine Protein Urine Glucose (UA) Urine Ketones Urine Occult Blood Urine Nitrate Urine Bilirubin Urine Urobilinogen Ur Leukocyte Esterase Urine RBC Urine WBC Ur Squamous Epith Cells Amorphous Sediment Urine Bacteria Ur Culture Indicated? Nasal Screen MRSA (PCR) COVID-19 PCR 07/22/20 07/22/20 07/22/20 06:20 06:40 08:00 WBC RBC Hgb Hct MCV MCH MCHC RDW Plt Count Neut % (Auto) Lymph % (Auto) [place] % (Auto) Eos % (Auto) Baso % (Auto) Neut # (Auto) Lymph # (Auto) [place] # (Auto) Eos # (Auto) Baso # (Auto) PT INR D-Dimer ABG pH ABG pCO2 ABG pO2 ABG HCO3 ABG Total CO2 ABG O2 Saturation ABG Base Excess FiO2 Sodium Potassium Chloride Carbon Dioxide BUN Creatinine Estimated GFR BUN/Creatinine Ratio Glucose Lactate Calcium Phosphorus Magnesium Total Bilirubin AST ALT Alkaline Phosphatase Total Creatine Kinase CK-MB (CK-2) CK-MB (CK-2) Rel Index Troponin I NT-Pro-B Natriuret Pep Total Protein Albumin Globulin Albumin/Globulin Ratio Procalcitonin 14.53 H Urine Color Dark yellow Urine Appearance Clear Urine pH 5.0 Ur Specific [place] 1.020 Urine Protein 3+ H Urine Glucose (UA) Negative Urine Ketones Negative Urine Occult Blood 3+ H Urine Nitrate Negative Urine Bilirubin Negative Urine Urobilinogen 0.2 Ur Leukocyte Esterase Negative Urine RBC 1-5/hpf Urine WBC None seen Ur Squamous Epith Cells 0-1 /hpf Amorphous Sediment 3+ Urine Bacteria Few (2-10) H Ur Culture Indicated? Cult not indicated Nasal Screen MRSA (PCR) Negative for mrsa COVID-19 PCR 07/22/20 07/22/20 07/22/20 08:37 13:05 13:05 WBC RBC Hgb Hct MCV MCH MCHC RDW Plt Count Neut % (Auto) Lymph % (Auto) [place] % (Auto) Eos % (Auto) Baso % (Auto) Neut # (Auto) Lymph # (Auto) [place] # (Auto) Eos # (Auto) Baso # (Auto) PT INR D-Dimer ABG pH ABG pCO2 ABG pO2 ABG HCO3 ABG Total CO2 ABG O2 Saturation ABG Base Excess FiO2 Sodium 136 L Potassium 5.0 Chloride 112 H Carbon Dioxide 12 L BUN 50 H Creatinine 3.00 H Estimated GFR 21.2 L BUN/Creatinine Ratio 16.7 Glucose 189 H Lactate 2.1 Calcium 6.3 L* Phosphorus Magnesium 2.6 H Total Bilirubin AST ALT Alkaline Phosphatase Total Creatine Kinase CK-MB (CK-2) CK-MB (CK-2) Rel Index Troponin I NT-Pro-B Natriuret Pep Total Protein Albumin Globulin Albumin/Globulin Ratio Procalcitonin Urine Color Urine Appearance Urine pH Ur Specific [place] Urine Protein Urine Glucose (UA) Urine Ketones Urine Occult Blood Urine Nitrate Urine Bilirubin Urine Urobilinogen Ur Leukocyte Esterase Urine RBC Urine WBC Ur Squamous Epith Cells Amorphous Sediment Urine Bacteria Ur Culture Indicated? Nasal Screen MRSA (PCR) COVID-19 PCR 07/22/20 07/22/20 07/22/20 13:05 13:15 14:22 WBC RBC Hgb Hct MCV MCH MCHC RDW Plt Count Neut % (Auto) Lymph % (Auto) [place] % (Auto) Eos % (Auto) Baso % (Auto) Neut # (Auto) Lymph # (Auto) [place] # (Auto) Eos # (Auto) Baso # (Auto) PT INR D-Dimer ABG pH 7.33 L ABG pCO2 18.7 L* ABG pO2 99 ABG HCO3 10 L ABG Total CO2 11 L ABG O2 Saturation 97 ABG Base Excess -16.0 L FiO2 21 Sodium Potassium Chloride Carbon Dioxide BUN Creatinine Estimated GFR BUN/Creatinine Ratio Glucose Lactate Calcium Phosphorus 9.5 H* Magnesium Total Bilirubin AST ALT Alkaline Phosphatase Total Creatine Kinase > 585388 H CK-MB (CK-2) CK-MB (CK-2) Rel Index Troponin I NT-Pro-B Natriuret Pep Total Protein Albumin Globulin Albumin/Globulin Ratio Procalcitonin Urine Color Urine Appearance Urine pH Ur Specific [place] Urine Protein Urine Glucose (UA) Urine Ketones Urine Occult Blood Urine Nitrate Urine Bilirubin Urine Urobilinogen Ur Leukocyte Esterase Urine RBC Urine WBC Ur Squamous Epith Cells Amorphous Sediment Urine Bacteria Ur Culture Indicated? Nasal Screen MRSA (PCR) COVID-19 PCR Assessment & Plan Assessment & Plan narrative: A total of 90 minutes was spent with patient and coordinating care. I discussed with cis coordinator at [facility] Dr. Li who recommended transfer due to higher level of care and probable need for dialysis as well as management by cis coordinator for severe rhabdomyolysis. Then discussed with Dr. Sultana and nursing education specialist at [facility] who accepted patient in transfer. 65-year-old male Assessment 1. Septic shock. Patient presented to ER tachypneic with tachycardia, hypotension and elevated markers for systemic infection including a procalcitonin of 14 and a lactic acid of 4.7. It was felt that infectious source was likely from cellulitis in of lower extremities and the chronic wounds. Urine culture, blood culture are pending. Chest x-ray was negative. CT scan of the chest was not done due to acute kidney disease. Patient was given Zosyn in the ER but has a history of allergy or possible adverse reaction to it so this was switched to Levaquin and received 1 dose of 750 mg of Levaquin at approximately 12:00 p.m. on 07/22/2020. Patient still initial white blood cell count was markedly elevated at 24. With IV hydration it did come down to 16. Patient's fever did decrease. Patient responded to fluid resuscitation in terms of hypotension and tachycardia. As well as tachypnea. Assessment 2. Acute severe rhabdomyolysis thought to be secondary to infection. Patient is on statin as an outpatient and did take this probably when he had already started on the process of sepsis as well as rhabdomyolysis. Initial CK was 68,000 and repeat after at least 2 L of IV fluids was 127,000. Patient received received 6 L of normal saline fluid resuscitation and only 300 cc of urine out. Urine was Coke colored as would be expected with rhabdomyolysis. Patient showed worsening acidosis on repeat ABG. Patient had no further urine output after this initial 300 cc that occurred at approximately 6:00 a.m. test at 9:00 a.m.. Due to concern for progressive kidney injury and management of severe right rhabdomyolysis the case was discussed with Nephrology at [facility] and arrangement was made for transfer for anticipated dialysis. Simvastatin was held. Assessment 3. Acute kidney failure. Initial creatinine 2.4. Baseline creatinine last checked in December was 1.2. IV fluid creatinine improved to 2.2 but then on repeat creatinine found to be 3. YADIEL-inhibitor and hydrochlorothiazide held. Fluid resuscitation performed. Plan for transfer to [facility]. Assessment 4. Acute metabolic acidosis secondary to sepsis syndrome and rhabdomyolysis with significant fluid resuscitation. Will start D5W with 150 mEq of sodium bicarb and run at 150 cc an hour. This was based on the recommendation from Nephrology. Patient will be transferred for further management. Assessment 5. Hyperkalemia secondary to acute kidney failure, sepsis and rhabdomyolysis Plan: Improved with IV fluid resuscitation Assessment 6. Troponemia Suspect related to rhabdomyolysis. Did discuss with Cardiology. Echo was ordered. Suspect that this is not acute coronary syndrome. Patient without any chest pain dyspnea and dyspnea on exertion. Assessment 7. New onset atrial fibrillation. Patient had approximately 6 hours of atrial fibrillation with a reasonably well-controlled rate and then return to sinus rhythm. Plan: Will continue to monitor. Echo scheduled. Will treat electrolyte abnormalities. Assessment 8. Electrolyte abnormalities Plan: Secondary to metabolic acidosis due to acute sepsis syndrome and rhabdomyolysis Will continue with current treatment and plan for transfer. Assessment 9. History of impaired glucose tolerance with blood sugars in the 270s possible progression to type 2 diabetes with family history of same and obesity Plan: Will continue with CBG q.a.c. and q.h.s. as well as sliding scale insulin. Assessment 10. Previous history of tobacco abuse: No current lung problems. Does not currently smoke Assessment 11. Anemia history of the same no acute evidence of anemia. Plan will do guaiac stools. Assessment 12. DVT prophylaxis Plan: Continue Lovenox 40 mg subcu b.i.d. 1st dose would be tonight because he received 130 mg in the ER this morning Code status: Full code COVID-19 COVID-19 status: Negative Result date/Date tested (Pos, Neg/Pending): 07/22/20 Quality VTE Deep Vein Thrombosis/Pulmonary Embolism Present on Admission: No
--- NOTE | 2020-07-22 16:02 | PC.NURSE ---
Admission Note: Pt admitted from ER for sepsis and rhabdomyolysis, elevated troponins, a-fib RVR. Likely source of infection is BLE with chronic stasis wounds and cellulitis. Pt with multiple oozing, odorous wounds on bilateral LE, groin with odorous discharge and open, weeping skin. Scrotum with a line of injury on scrotum that appears to be a pressure injury. Pt also with stage II or unstageable pressure ulcer on L buttock. Areas of erythema in periwound tissue, also Pt arrives in a-fib RVR, SBP high 90s to 100s, transiently as low as SBP 86. Pt now in SR, HR 92. Pt with booker in place, dark red/berna urine from booker, 75 ml for shift. Pt has received a total of ~ 6L fluid since admission. Pt started on bicarb gtts per nephrology recommendation. Nephrology requests that pt be transferred to [facility] for further nephrology oversight. Pt made aware of plans for transfer. Pt's family members notified. Report given to ROBERTO Alvarez in P[facility]U at [facility], pt to transfer this evening.
== END 2020-07-22 17:54 | disposition short-term general hospital (02) | DRG 871 ==
LOC: ED 04:16 → AC 05:58 → ICU 08:06 → AC 06-30 14:35 → ICU 06-30 14:35
PROVIDERS: Admitting Provider Family Medicine; Emergency Provider Emergency Medicine; PCP Family Medicine; Referring Provider Emergency Medicine; Visit Provider Family Medicine
DX: A41.9 Sepsis, unspecified organism (principal); R65.21 Severe sepsis with septic shock; N17.9 Acute kidney failure, unspecified; M62.82 Rhabdomyolysis; L03.116 Cellulitis of left lower limb; L03.115 Cellulitis of right lower limb; E87.2 Acidosis; E87.5 Hyperkalemia; I48.91 Unspecified atrial fibrillation; I95.9 Hypotension, unspecified; I10 Essential (primary) hypertension; E78.5 Hyperlipidemia, unspecified; Z11.59 Encounter for screening for other viral diseases; Z87.891 Personal history of nicotine dependence; E66.9 Obesity, unspecified; Z68.33 Body mass index [BMI] 33.0-33.9, adult; W18.30XA Fall on same level, unspecified, initial encounter
CPT/HCPCS: 36415; 36600; 51701; 71045; 80048; 80053; 81001; 82550; 82553; 82805; 82962; 83605; 83735; 83880; 84100; 84145; 84484; 85025; 85379; 85610; 87040; 87070; 87077; 87147; 87186; 87205; 87635; 87797; 93005; 93970; 96361; 96365; 96372; 96375; 96376; 99285; 99291; G0378; J1650; J1956; J2270; J2543